=== PATIENT | female | born 1935 | race Caucasian/White ===

== ENCOUNTER 2016-08-04 13:43 | Observation (INO) | payer MEDICARE ==
[~2016-08-04] VITALS: Ht 162.6 cm; Wt 75.0 kg
[~2016-08-04 13:43] MED LIST: ALN70T; AMIO200T2 PO; APIX5TAB2 PO; ASCO500T20 PO; ASP81TEC PO; B-12; C250T; CALCIUM 1200 MG PO; CHOL100011 PO; CLD600T; CYAN500L PO; E400C PO; FENO145T PO; FENO145T18 PO; FISH1CAP15 PO; FLEC100T2 PO; GING1POW PO; GINGER ROOT PO; GLUC-113 PO; GLUC-116 PO; HYDR1TAB66 PO; IRB150T PO; KCL; LEVO125T PO; LVT.112T PO; LVT.1T PO; MCLZ25TRX PO; MECL-124 PO; MELO7.5T; OLME20TA5; OMG1KC; PANT40TA PO; VIT1TABL57 PO; VITAMIN A&D PC
[2016-08-04 17:07] VITALS: BP 151/76
[2016-08-04] MEDS ORDERED: PATIENT MAY USE OWN MEDS, ALL PO SCH (17:30)
[2016-08-04] MEDS ORDERED: ONDANSETRON 4 MG/2 ML (SDV) Z0FRAN IVP PRN (17:30)
[2016-08-04] MEDS ORDERED: MECLIZINE 25 MG (ANTIVERT) TAB PO NR (17:45)
[2016-08-04] MEDS ORDERED: ACETAMINOPHEN 500 MG TAB (TYLENOL) PO PRN (17:45)
[2016-08-04 17:51] LABS: BASOPHILS # (AUTO) 0.1 10^3/uL (0.0-0.1); BASOPHILS % (AUTO) 1 % (0-10); EOSINOPHILS # (AUTO) 0.2 10^3/uL (0.0-0.3); EOSINOPHILS % (AUTO) 3 % (0-10); LYMPHOCYTES % (AUTO) 33 % (12-44); MEAN CORPUSCULAR HEMOGLOBIN 27 PG (25-34); MEAN CORPUSCULAR HGB CONC 33 G/DL (32-36); MEAN CORPUSCULAR VOLUME 83 FL (80-99); MEAN PLATELET VOLUME 10.1 FL (7.4-10.4); MONOCYTES # (AUTO) 0.6 X 10^3 (0.0-1.0); MONOCYTES % (AUTO) 10 % (0-12); NEUTROPHILS # (AUTO) 3.2 X 10^3 (1.8-7.8); NEUTROPHILS % (AUTO) 54 % (42-75); PLATELET COUNT 314 10^3/uL (130-400); RED BLOOD COUNT 4.53 10^6/uL (4.35-5.85); RED CELL DISTRIBUTION WIDTH 13.3 % (10.0-14.5)
[2016-08-04 18:07] LABS: ALANINE AMINOTRANSFERASE 19 U/L (0-55); ANION GAP 11 MMOL/L (5-14); ASPARTATE AMINO TRANSFERASE 17 U/L (5-34); BILIRUBIN,TOTAL 0.4 MG/DL (0.1-1.0); BLOOD UREA NITROGEN 19 MG/DL (7-18); BUN/CREATININE RATIO 28; CALCIUM 9.5 MG/DL (8.5-10.1); CARBON DIOXIDE 22 MMOL/L (21-32); CHLORIDE 106 MMOL/L (98-107); CREATININE SERUM 0.68 MG/DL (0.60-1.30); GFR ESTIMATED > 60; GLUCOSE 99 MG/DL (70-105); MAGNESIUM 1.9 MG/DL (1.8-2.4); POTASSIUM 3.7 MMOL/L (3.6-5.0); SODIUM 139 MMOL/L (135-145); TOTAL PROTEIN 6.4 G/DL (6.4-8.2); hs C REACTIVE PROTEIN 0.64 MG/DL (0.00-0.50)
--- NOTE | 2016-08-04 18:14 | History & Physicial ---
History of Present Illness History of Present Illness Reason for visit/HPI This is an 81 year old female who presented to my office with recent onset of acute vertigo with a fall. [place] had the onset of vertigo. She stood up to try to grab on to something but was swaying and spinning and fell to the ground striking her right shoulder. She has been unsteady and foggy since. Her family also reports worsening memory recently. She has a known history of atrial fibrillation but denies any recent palpitations. She was found to have lateral nystagmus on exam and it was decided to directly admit her for further evaluation. Date of Admission I consulted on this patient on 08/04/16 17:36 Attending Physician Reji Ghosh DO Admitting Physician Reji Ghosh DO Consult Allergies and Home Medications Allergies Coded Allergies: diltiazem (Verified Allergy, Unknown, 06/28/15) thiopental (Verified Allergy, Unknown, 06/28/15) warfarin (Verified Allergy, Unknown, 06/28/15) Home Medications Amiodarone HCl 200 Mg Tablet, 400 MG PO BID, #60 Ref 2 Take 400 mg Twice daily for one week then take 200 mg Twice daily Prescribed by: MARYSE LAZO on 06/29/15 0938 Apixaban 5 Mg Tablet, 5 MG PO BID, #60 Ref 4 Prescribed by: DARLINE BARRAGAN on 07/20/13 1201 Ascorbic Acid 500 Mg Tablet, 500 MG PO DAILY, (Reported) Cholecalciferol 1,000 Unit Capsule, 1,000 UNIT PO DAILY, (Reported) Cyanocobalamin 500 Mcg Lozenge, 500 MCG PO DAILY, (Reported) Fenofibrate Nanocrystallized 145 Mg Tablet, 145 MG PO DAILY, #30 Prescribed by: DARRYL RUDOLPH on 01/24/13 1100 Fish Oil/Dha/Epa 1 Each Capsule, 1,200 MG PO BID, (Reported) Gluc 2KCL/Chondr/Amie Hy/Hy Ac 1 Each Capsule, 1 CAP PO BID, (Reported) 1500MG/1200MG Irbesartan 150 Mg Tab, 150 MG PO DAILY, (Reported) Levothyroxine Sodium 125 Mcg Tablet, 125 MCG PO DAILY, (Reported) Meclizine Hcl 25 Mg Tab, 1 TAB PO DAILY, #30 Prescribed by: DARRYL RUDOLPH on 01/24/13 1100 Vitamin E Acetate 400 Unit Capsule, 400 UNITS PO DAILY, (Reported) [Calcium 1200MG] , 1,200 MG PO DAILY, (Reported) [Vanessa Root] , 550 MG PO DAILY, (Reported) Past Slyloiv-Rrtabl-Gcggdq Hx Patient Social History Alcohol Use: Denies Use Recreational Drug Use: No Smoking Status: Never a Smoker Physical Abuse Screen: No Sexual Abuse: No Recent Foreign Travel: No Contact w/other who traveled: No Recent Hopitalizations: No Recent Infectious Disease Expo: No Immunizations Up To Date Tetanus Booster (TDap): More than 5yrs Seasonal Allergies Seasonal Allergies: No Surgeries HX Surgeries: Yes (HEART ABLATION) Respiratory Hx Respiratory Disorders: No Cardiovascular Hx Cardiovascular Disorders: Yes (a fib, 2 ABLASIONS LAST ONE OCT 2014 ) Neurological Hx Neurological Disorders: No Reproductive System Hx Reproductive Disorders: No Genitourinary Hx Genitourinary Disorders: No Gastrointestinal Hx Gastrointestinal Disorders: No Gastrointestinal Disorders: Gastroesophageal Reflux Musculoskeletal Hx Musculoskeletal Disorders: Yes Musculoskeletal Disorders: Arthritis Endocrine Hx Endocrine Disorders: Yes (THYROIDECTOMY- TAKES SYNTHROID) HEENT HX ENT Disorders: No (BILAT CATARACTS REMOVED) HEENT Disorders: Cataract Loss of Vision: Denies Hearing Impairment: Denies Cancer Hx Cancer: No (FREEZING TO AREAS AROUND NOSE-POSS CANCEROUS) Cancer: Skin Psychosocial Hx Psychiatric Problems: No Integumentary HX Skin/Integumentary Disorder: No (FREEZING DONE ON SCALEY AREAS AROUND NOSE) Blood Transfusions Hx Blood Disorders: No Family Medical History Family Hx: Cancer 03 MOTHER SON (KIDNEY) Family history: Arthritis 03 FATHER 03 MOTHER Parkinson's disease 09 BROTHER No Family History of: Family history: Cardiovascular disease Family history: Diabetes mellitus Family history: Thyroid disorder Heart disease Psychotic disorder Constitutional: weakness EENTM: No blurred vision, No dental problems, No double vision, No ear discharge, No ear pain, No epistaxis, No eye pain, No hearing loss, No hoarseness, No mouth pain, No mouth swelling, No no symptoms reported, No nose congestion, No nose pain, No other, No see HPI, No tearing, No throat pain, No throat swelling, No vision loss Respiratory: No no symptoms reported, No see HPI, No cough, No dyspnea on exertion, No hemoptysis, No orthopnea, No phlegm, No short of breath, No stridor , No wheezing, No other Cardiovascular: No no symptoms reported, No see HPI, No chest pain, No edema, No Hx of Intervention, No palpitations, No syncope, No vascular heart diseas, No other Gastrointestinal: nausea Genitourinary: No no symptoms reported, No see HPI, No decreased output, No discharge, No dysuria, No frequency, No hematuria, No hesitancy, No incontinence , No nocturia, No pain, No other Musculoskeletal: joint pain (right shoulder from fall), muscle weakness Skin: other (bruising to right shoulder) Psychiatric/Neurological: Weakness, Other (dizziness) Physical Exam Vital Signs Vital Sign - Last 12Hours 08/04/16 17:07 Temp 97.0 Pulse 78 Resp 20 B/P (MAP) 151/76 Pulse Ox 96 Capillary Refill : General Appearance: No Apparent Distress HEENT: Normal ENT Inspection Neck: Supple Respiratory: Lungs Clear Cardiovascular: Regular Rate, Rhythm, Systolic Murmur, Gallop/S4 Gastrointestinal: Normal Bowel Sounds, Non Tender, Soft Rectal: Deferred Back: No CVA Tenderness Extremity: Non Tender, No Calf Tenderness, No Pedal Edema Neurologic/Psychiatric: Alert, Oriented x3, Other (unsteady gait, lateral nystagmus) Skin: Ecchymosis (right shoulder) Comments Laboratory Tests 08/04/16 17:40: White Blood Count 6.0, Red Blood Count 4.53, Hemoglobin 12.3, Hematocrit 38, Mean Corpuscular Volume 83, Mean Corpuscular Hemoglobin 27, Mean Corpuscular Hemoglobin Concent 33, Red Cell Distribution Width 13.3, Platelet Count 314, Mean Platelet Volume 10.1, Neutrophils (%) (Auto) 54, Lymphocytes (%) (Auto) 33 , Monocytes (%) (Auto) 10, Eosinophils (%) (Auto) 3, Basophils (%) (Auto) 1, Neutrophils # (Auto) 3.2, Lymphocytes # (Auto) 2.0, Monocytes # (Auto) 0.6, Eosinophils # (Auto) 0.2, Basophils # (Auto) 0.1 08/04/16 17:52: Assessment/Plan Assessment and Plan 1. Acute Vertigo with Fall and Recent Memory Loss--admit and Check CT of head as well as CT angiogram of neck, hydrate, meclizine, check lab and UA 2. History of Atrial Fibrillation--monitor on telemetry, continue eliquis 3. Hypertension--resume Avapro 4. Hypothyroidism--check TSH and free T4 Problems: REJI GHOSH DO August 04, 2016 18:14
[2016-08-04] MEDS: NS IV 1000 ML 1,000 ML IV SCH (18:25)
[2016-08-04 18:29] LABS: BILIRUBIN,URINE NEGATIVE (NEGATIVE); KETONES,URINE NEGATIVE (NEGATIVE); LEUKOCYTE ESTERASE ,URINE 2+ (NEGATIVE); NITRITE,URINE NEGATIVE (NEGATIVE); PH,URINE 6.5 (5-9); PROTEIN,URINE NEGATIVE (NEGATIVE); UROBILINOGEN,URINE NORMAL (NORMAL)
[2016-08-04 18:30] LABS: SQUAMOUS EPITHELIAL CELL,UR RARE /HPF; WBC,URINE 0-2 /HPF
--- NOTE | 2016-08-04 18:43 | Diagnostic Imaging Report ---
INDICATION: Fell on right shoulder, pain and bruising. COMPARISON STUDY: Chest radiograph from 06/28/2015. FINDINGS: Three views of the right shoulder demonstrates no fracture or dislocation. Osteophytes are seen off of the inferior aspect of the glenoid. IMPRESSION: There are no acute findings. Dictated by: Dictated on workstation # [id number]
--- NOTE | 2016-08-04 18:45 | Diagnostic Imaging Report ---
PROCEDURE: CT head without contrast. TECHNIQUE: Multiple contiguous axial images were obtained through the brain without the use of intravenous contrast. INDICATION: Vertigo, confusion, and chronic atrial fibrillation. COMPARISON STUDIES: None. FINDINGS: Noncontrast CT scanning of the head demonstrates mild atrophy. There is some calcification of both carotid siphons. No mass effect, midline shift, hemorrhage, or extra-axial fluid collections are present. No insular ribbon sign or hyperdense MCA sign is present. The bone windows appear normal. IMPRESSION: There is mild atrophy with no acute findings. Dictated by: Dictated on workstation # [id number]
--- NOTE | 2016-08-04 18:49 | Diagnostic Imaging Report ---
INDICATION: Vertigo, confusion, chronic atrial fibrillation. CONTRAST: 75 cc of Omnipaque 350 was given intravenously. COMPARISON STUDY: CT scan of the head from earlier today. FINDINGS: The CTA of the head demonstrates normal takeoff of the great vessels from the arch. The left vertebral artery is small. No dissection or stenosis is seen. The left vertebral artery ends in PICA. The common carotid and internal carotid arteries both appear normal. Some degenerative changes are present within the cervical spine. There are no fractures or subluxations. The soft tissues of the neck appear normal. The lung apices are clear. The CTA of the head demonstrates the vertebral basilar system without stenosis. There is a origin of the left posterior cerebral artery which is a normal variant. No aneurysm or AVM is present. Minimal calcifications are present in the carotid siphons. Middle and anterior cerebral arteries appear normal. IMPRESSION: 1. No stenosis, filling defects, aneurysms or vascular malformations are present. 2. Degenerative changes are present in the cervical spine. Dictated by: Dictated on workstation # [id number]
[2016-08-04 19:18] VITALS: BP 150/67
[2016-08-04] MEDS ORDERED: APIXABAN 5 MG (ELIQUIS) TABLET PO SCH (21:00)
[2016-08-05 00:17] VITALS: BP 146/65
[2016-08-05] MEDS: NS IV 1000 ML 1,000 ML IV SCH ×2 (02:04→08:24)
[2016-08-05 04:09] VITALS: BP 150/68
[2016-08-05] MEDS ORDERED: LEVOTHYROXINE 125 MCG (LEVOTHROID) TABLET PO SCH (06:30)
[2016-08-05 08:00] VITALS: BP 123/56
[2016-08-05] MEDS ORDERED: APIX5TAB PO (08:13)
[2016-08-05] MEDS ORDERED: FENO145T20 PO (08:13)
[2016-08-05] MEDS ORDERED: CALC-676 PO (08:21)
[2016-08-05] MEDS ORDERED: OMG1KC PO (08:21)
[2016-08-05] MEDS ORDERED: MECL-106 PO (08:21)
[2016-08-05] MEDS ORDERED: CHOL200059 PO (08:21)
[2016-08-05] MEDS ORDERED: ACET-2267 PO (08:22)
--- NOTE | 2016-08-05 08:55 | Discharge Inst-Simple/Standard ---
Discharge Inst-Standard Patient Instructions/Follow Up Plan of Care/Instructions/FU: Fwup 2 weeks Activity as Tolerated: Yes Discharge Diet: Cardiac Diet Planned Outpatient Orders/Ref. See Dr. Elias Anderson for updated eye exam Pneu Vac Indicated: Yes REJI ISIDRO DO Aug 05, 2016 8:55 am
[2016-08-05] MEDS ORDERED: APIXABAN 5 MG (ELIQUIS) TABLET PO SCH (09:00)
[2016-08-05] MEDS ORDERED: IRBESARTAN 150 MG (AVAPRO) TAB PO SCH (09:00)
[2016-08-05 09:51] VITALS: BP 123/56
[2016-08-06] MEDS ORDERED: LEVOTHYROXINE 125 MCG (LEVOTHROID) TABLET PO SCH (06:30)
--- NOTE | 2016-08-17 14:10 | Physician Query-Final Dx ---
Final Diagnosis Give Final Diagnosis Please give Final Diagnosis MOISÉS SANTIAGO Aug 17, 2016 14:09
--- OUTSIDE RECORDS SUMMARY | 2016-08-19 18:10 | XMS REPORT | Continuity of Care Document ---
Author Author [facility] Organization [facility] Address Unknown Phone Unavailable Allergies Active Description Code Type Severity Reaction Onset Reported/Identified Relationship to Patient Clinical Status Yes diltiazem [id number] Drug Allergy Unknown N/A 06/28/2015 Yes thiopental [id number] Drug Allergy Unknown N/A 06/28/2015 Yes warfarin [id number] Drug Allergy Unknown N/A 06/28/2015 Medications Problems Date Dx Coded Attending Type Code Diagnosis Diagnosed By 08/01/2011 Ot 401.9 HYPERTENSION NOS 08/01/2011 Ot 427.31 ATRIAL FIBRILLATION 01/24/2013 TRU SHIELDS, ANAM Trevizo Ot 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 07/20/2013 MARYSE LAZO MD Ot 272.4 HYPERLIPIDEMIA NEC/NOS 07/20/2013 MARYSE LAZO MD Ot 401.9 HYPERTENSION NOS 07/20/2013 MARYSE LAZO MD Ot 414.01 CORONARY ATHEROSCLEROSIS OF [place] CORON 07/20/2013 MARYSE LAZO MD Ot 427.31 ATRIAL FIBRILLATION 07/20/2013 MARYSE LAZO MD Ot 786.50 CHEST PAIN NOS 07/20/2013 MARYSE LAZO MD Ot 794.30 ABN CARDIOVASC STUDY NOS 07/20/2013 MARYSE LAZO MD Ot V58.69 OTH MED,LT,CURRENT USE 01/18/2014 ORENDSHELLY LANTIGUA DOLINE S Ot 724.2 01/18/2014 JOSE ISIDRO DOQUELINE S Ot 729.5 01/28/2014 TRISHA NATION MD Ot 721.3 LUMBOSACRAL SPONDYLOSIS 01/28/2014 TRISHA NATION MD Ot 724.6 DISORDERS OF SACRUM 01/28/2014 TRISHA NATION MD Ot V58.69 OTH MED,LT,CURRENT USE 06/24/2015 MARYSE LAZO MD Ot E78.2 MIXED HYPERLIPIDEMIA 06/24/2015 MARYSE LAZO MD Ot I10 ESSENTIAL (PRIMARY) HYPERTENSION 06/24/2015 MARYSE LAZO MD Ot I25.10 ATHSCL HEART DISEASE OF [place] CORONARY 06/24/2015 MARYSE LAZO MD Ot I48.0 PAROXYSMAL ATRIAL FIBRILLATION 06/24/2015 MRAYSE LAZO MD Ot I48.3 TYPICAL ATRIAL FLUTTER 06/24/2015 MARYSE LAZO MD Ot I65.23 OCCLUSION AND STENOSIS OF [place] 06/28/2015 Ot 401.9 HYPERTENSION NOS 06/28/2015 Ot 427.31 ATRIAL FIBRILLATION 06/29/2015 MARYSE LAZO MD Ot E78.5 HYPERLIPIDEMIA, UNSPECIFIED 06/29/2015 MARYSE LAZO MD Ot E89.0 POSTPROCEDURAL HYPOTHYROIDISM 06/29/2015 MARYSE LAZO MD Ot I10 ESSENTIAL (PRIMARY) HYPERTENSION 06/29/2015 MARYSE LAZO MD Ot I25.10 ATHSCL HEART DISEASE OF [place] CORONARY 06/29/2015 MARYSE LAZO MD Ot I48.0 PAROXYSMAL ATRIAL FIBRILLATION 06/29/2015 MARYSE LAZO MD Ot I65.23 OCCLUSION AND STENOSIS OF [place] 06/29/2015 MARYSE LAZO MD Ot K21.9 GASTRO-ESOPHAGEAL REFLUX DISEASE WITHOUT 07/15/2015 MARYSE LAZO MD Ot E78.2 MIXED HYPERLIPIDEMIA 07/15/2015 MARYSE LAZO MD Ot I10 ESSENTIAL (PRIMARY) HYPERTENSION 07/15/2015 MARYSE LAZO MD Ot I25.10 ATHSCL HEART DISEASE OF [place] CORONARY 07/15/2015 MARYSE LAZO MD Ot I48.0 PAROXYSMAL ATRIAL FIBRILLATION 07/15/2015 MARYSE LAZO MD Ot I48.3 TYPICAL ATRIAL FLUTTER 07/15/2015 MARYSE LAZO MD Ot I65.23 OCCLUSION AND STENOSIS OF [place] 07/29/2015 MARYSE LAZO MD Ot E78.2 MIXED HYPERLIPIDEMIA 07/29/2015 MARYSE LAZO MD Ot I10 ESSENTIAL (PRIMARY) HYPERTENSION 07/29/2015 MARYSE LAZO MD Ot I25.10 ATHSCL HEART DISEASE OF [place] CORONARY 07/29/2015 MARYSE LAZO MD Ot I48.0 PAROXYSMAL ATRIAL FIBRILLATION 07/29/2015 MARYSE LAZO MD Ot I48.3 TYPICAL ATRIAL FLUTTER 07/29/2015 MARYSE LAZO MD Ot I65.23 OCCLUSION AND STENOSIS OF [place] 01/22/2016 Ot 401.9 HYPERTENSION NOS 01/22/2016 Ot 427.31 ATRIAL FIBRILLATION 01/22/2016 Ot 401.9 HYPERTENSION NOS 01/22/2016 Ot 427.31 ATRIAL FIBRILLATION 01/22/2016 Ot 401.9 HYPERTENSION NOS 01/22/2016 Ot 427.31 ATRIAL FIBRILLATION 01/22/2016 Ot 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 01/22/2016 REJI ISIDRO DO S Ot 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 01/22/2016 BEAU ELIZABETH Ot 733.00 OSTEOPOROSIS NOS 01/22/2016 TRU SHIELSD, ANAM Trevizo Ot 241.0 NONTOX UNINODULAR GOITER 01/22/2016 TRU SHIELDS, ANAM Trevizo Ot 241.0 NONTOX UNINODULAR GOITER 01/22/2016 TRU SHIELDS, ANAM Trevizo Ot V72.63 PRE-PROCEDURAL LABORATORY EXAMINATION 01/22/2016 TRU SHIELDS, ANAM Trevizo Ot V74.8 SCREEN-BACTERIAL DIS NEC 01/22/2016 MARYSE LAZO MD Ot 272.4 HYPERLIPIDEMIA NEC/NOS 01/22/2016 MARYSE LAZO MD Ot 397.0 TRICUSPID VALVE DISEASE 01/22/2016 MARYSE LAZO MD Ot 401.9 HYPERTENSION NOS 01/22/2016 MARYSE LAZO MD Ot 424.0 MITRAL VALVE DISORDER 01/22/2016 MARYSE LAZO MD Ot 427.31 ATRIAL FIBRILLATION 01/22/2016 MARYSE LAZO MD Ot 785.1 PALPITATIONS 01/22/2016 MARYSE LAZO MD Ot 786.50 CHEST PAIN NOS 01/22/2016 MARYSE LAZO MD Ot 272.4 HYPERLIPIDEMIA NEC/NOS 01/22/2016 MARYSE LAZO MD Ot 401.9 HYPERTENSION NOS 01/22/2016 MARYSE LAZO MD Ot 427.31 ATRIAL FIBRILLATION 01/22/2016 MARYSE LAZO MD Ot 785.1 PALPITATIONS 01/22/2016 MARYSE LAZO MD Ot 786.50 CHEST PAIN NOS 01/22/2016 MARYSE LAZO MD Ot 401.9 HYPERTENSION NOS 01/22/2016 MARYSE LAZO MD Ot 427.31 ATRIAL FIBRILLATION 01/22/2016 MARYSE LAZO MD Ot 785.1 PALPITATIONS 01/22/2016 MARYSE LAZO MD Ot 786.50 CHEST PAIN NOS 01/22/2016 MARYSE LAZO MD Ot 794.30 ABN CARDIOVASC STUDY NOS 01/22/2016 MARYSE LAZO MD Ot 789.00 ABDOMINAL PAIN, UNSPECIFIED SITE 01/22/2016 MARYSE LAZO MD Ot 272.4 HYPERLIPIDEMIA NEC/NOS 01/22/2016 MARYSE LAZO MD Ot 401.9 HYPERTENSION NOS 01/22/2016 MARYSE LAZO MD Ot 414.01 CORONARY ATHEROSCLEROSIS OF [place] CORON 01/22/2016 MARYSE LAZO MD Ot 427.31 ATRIAL FIBRILLATION 01/22/2016 MARYSE LAZO MD Ot 785.1 PALPITATIONS 01/22/2016 REJI ISIDRO DO S Ot 724.2 LUMBAGO 01/22/2016 REJI ISIDRO DO S Ot 729.5 PAIN IN LIMB 01/22/2016 MARYSE LAZO MD Ot E78.2 MIXED HYPERLIPIDEMIA 01/22/2016 MARYSE LAZO MD Ot I10 ESSENTIAL (PRIMARY) HYPERTENSION 01/22/2016 MARYSE LAZO MD Ot I25.10 ATHSCL HEART DISEASE OF [place] CORONARY 01/22/2016 MARYSE LAZO MD Ot I48.0 PAROXYSMAL ATRIAL FIBRILLATION 01/22/2016 MARYSE LAZO MD Ot I48.3 TYPICAL ATRIAL FLUTTER 01/22/2016 MARYSE LAZO MD Ot I65.23 OCCLUSION AND STENOSIS OF [place] 01/22/2016 SHELLY ISIDRO DOLINE S Ot M85.88 OTH DISRD OF BONE DENSITY AND STRUCTURE, 01/23/2016 JOSE ISIDRO DOQUELINE S Ot M85.88 OTH DISRD OF BONE DENSITY AND STRUCTURE, 02/13/2016 SHELLY ISIDRO DOLINE S Ot M85.88 OTH DISRD OF BONE DENSITY AND STRUCTURE, 08/05/2016 REJI ISIDRO DO S Ot E03.9 HYPOTHYROIDISM, UNSPECIFIED Procedures Code Description Performed By Performed On [id number] MEASURE OF CARDIAC SAMPL PRESSURE, L H 06/29/2015 [id number] FLUOROSCOPY OF MULT COR ART USING L OSM 06/29/2015 [id number] FLUOROSCOPY OF LEFT HEART USING LOW OSMO 06/29/2015 [id number] FLUOROSCOPY OF ABDOMINAL AORTA USING LOW 06/29/2015 Results Test Result Range Complete blood count (CBC) with automated white blood cell (WBC) differential - 08/04/16 17:40 Blood leukocytes automated count (number/volume) 6.0 10*3/ uL 4.3-11.0 Blood erythrocytes automated count (number/volume) 4.53 10*6 /uL 4.35-5.85 Venous blood hemoglobin measurement (mass/volume) 12.3 g/dL 11.5-16.0 Blood hematocrit (volume fraction) 38 % 35-52 Automated erythrocyte mean corpuscular volume 83 [foz_us] 80-99 Automated erythrocyte mean corpuscular hemoglobin (mass per erythrocyte) 27 pg 25-34 Automated erythrocyte mean corpuscular hemoglobin concentration measurement ( mass/volume) 33 g/dL 32-36 Automated erythrocyte distribution width ratio 13.3 % 10.0-14.5 Automated blood platelet count (count/volume) 314 10*3/uL 130-400 Automated blood platelet mean volume measurement 10.1 [foz_ us] 7.4-10.4 Automated blood neutrophils/100 leukocytes 54 % 42-75 Automated blood lymphocytes/100 leukocytes 33 % 12-44 Blood monocytes/100 leukocytes 10 % 0-12 Automated blood eosinophils/100 leukocytes 3 % 0-10 Automated blood basophils/100 leukocytes 1 % 0-10 Blood neutrophils automated count (number/volume) 3.2 10*3 1.8-7.8 Blood lymphocytes automated count (number/volume) 2.0 10*3 1.0-4.0 Blood monocytes automated count (number/volume) 0.6 10*3 0.0-1.0 Automated eosinophil count 0.2 10*3/uL 0.0-0.3 Automated blood basophil count (count/volume) 0.1 10*3/uL 0.0-0.1 Comprehensive metabolic panel - 08/04/16 17:40 Serum or plasma sodium measurement (moles/volume) 139 mmol/ L 135-145 Serum or plasma potassium measurement (moles/volume) 3.7 mmol/L 3.6-5.0 Serum or plasma chloride measurement (moles/volume) 106 mmol /L 98-107 Carbon dioxide 22 mmol/L 21-32 Serum or plasma anion gap determination (moles/volume) 11 mmol/L 5-14 Serum or plasma urea nitrogen measurement (mass/volume) 19 mg/dL 7-18 Serum or plasma creatinine measurement (mass/volume) 0.68 mg /dL 0.60-1.30 Serum or plasma urea nitrogen/creatinine mass ratio 28 NRG Serum or plasma creatinine measurement with calculation of estimated glomerular filtration rate > NRG Serum or plasma glucose measurement (mass/volume) 99 mg/dL 70-105 Serum or plasma calcium measurement (mass/volume) 9.5 mg/dL 8.5-10.1 Serum or plasma total bilirubin measurement (mass/volume) 0.4 mg/dL 0.1-1.0 Serum or plasma alkaline phosphatase measurement (enzymatic activity/volume) 35 U/L 40-136 Serum or plasma aspartate aminotransferase measurement (enzymatic activity/ volume) 17 U/L 5-34 Serum or plasma alanine aminotransferase measurement (enzymatic activity/volume ) 19 U/L 0-55 Serum or plasma protein measurement (mass/volume) 6.4 g/dL 6.4-8.2 Serum or plasma albumin measurement (mass/volume) 4.0 g/dL 3.2-4.5 Magnesium - 08/04/16 17:40 Magnesium 1.9 mg/dL 1.8-2.4 THYROID STIMULATING HORMONE - 08/04/16 17:40 THYROID STIMULATING HORMONE 1.60 u[iU]/mL 0.35-4.94 Serum or plasma C reactive protein measurement (mass/volume) - 08/04/16 17:40 Serum or plasma C reactive protein measurement (mass/volume) 0.64 mg/dL 0.00-0.50 Serum or plasma thyroxine (T4) free measurement (mass/volume) - 08/04/16 17:40 Serum or plasma thyroxine (T4) free measurement (mass/volume) 1.49 ng/dL 0.70-1.48 Complete urinalysis with reflex to culture - 08/04/16 17:52 Urine color determination YELLOW NRG Urine clarity determination CLEAR NRG Urine pH measurement by test strip 6.5 5 -9 Specific gravity of urine by test strip 1.010 1.016-1.022 Urine protein assay by test strip, semi-quantitative NEGATIVE NEGATIVE Urine glucose detection by automated test strip NEGATIVE NEGATIVE Erythrocytes detection in urine sediment by light microscopy NEGATIVE NEGATIVE Urine ketones detection by automated test strip NEGATIVE NEGATIVE Urine nitrite detection by test strip NEGATIVE NEGATIVE Urine total bilirubin detection by test strip NEGATIVE NEGATIVE Urine urobilinogen measurement by automated test strip (mass/volume) NORMAL NORMAL Urine leukocyte esterase detection by dipstick 2+ NEGATIVE Automated urine sediment erythrocyte count by microscopy (number/high power field) NONE NRG Automated urine sediment leukocyte count by microscopy (number/high power field ) [HPF] NRG Bacteria detection in urine sediment by light microscopy TRACE NRG Squamous epithelial cells detection in urine sediment by light microscopy RARE NRG Crystals detection in urine sediment by light microscopy NONE NRG Casts detection in urine sediment by light microscopy NONE NRG Mucus detection in urine sediment by light microscopy NEGATIVE NRG Complete urinalysis with reflex to culture NO NRG Encounters ACCT No. Visit Date/Time Discharge Status Pt. Type Provider Facility Loc./Unit Complaint [id number] 08/04/2016 17:00:00 2016 08:54:00 DIS Inpatient REJI ISIDRO DO S [facility] 4TH DIZZINESS AND AFIB [id number] 06/28/2015 15:19:00 2015 14:30:00 DIS Inpatient MARYSE LAZO MD [facility] ICU A-FIB W/ RVR [id number] 01/28/2014 13:33:00 2013 14:44:00 DIS Outpatient TRISHA NATION MD [facility] CARD SIJD [id number] 12/17/2013 11:47:00 2013 23:59:59 CLS Outpatient REJI ISIDRO DO S [facility] RAD LOW BACK PAIN, L LEG PAIN [id number] 08/01/2013 08:46:00 2013 23:59:59 CLS Outpatient MARYSE LAZO MD [facility] CATH AFIB,PALP [id number] 07/23/2013 13:01:00 2013 23:59:59 CLS Outpatient MARYSE LAZO MD [facility] RAD ABD PAIN,POST CATH [id number] 07/20/2013 06:38:00 2013 13:15:00 DIS Outpatient MARYSE LAZO MD [facility] CATH CP,SOB,DIZZINESS [id number] 07/18/2013 09:43:00 2013 23:59:59 CLS Outpatient MARYSE LAZO MD [facility] CARD CP,PALPITATIONS,HTN,HLP [id number] 07/12/2013 08:59:00 2013 23:59:59 CLS Outpatient MARYSE LAZO MD [facility] CP PALIPATIATION HYPERTENSION HYPERLIPIDEMA [id number] 06/18/2013 11:24:00 2013 23:59:59 CLS Outpatient MARYSE LAZO MD [facility] CP, HTN [id number] 01/23/2013 07:15:00 2012 11:30:00 DIS Outpatient ANAM OTT MD [facility] SDC THYROID NODULES [id number] 01/19/2013 08:01:00 2012 23:59:59 CLS Outpatient ANAM OTT MD [facility] PREOP THYROID NODULES [id number] 01/10/2013 08:49:00 2012 23:59:59 CLS Outpatient ANAM OTT MD [facility] RAD LEFT THYROID NODULE [id number] 01/05/2013 08:53:00 2012 23:59:59 CLS Outpatient BEAU ELIZABETH DOLL SURGEON [facility] RAD OSTEOPORSIS [id number] 01/01/2013 12:22:00 2012 23:59:59 CLS Outpatient REJI ISIDRO DO [facility] RAD THYROID NODULES [id number] 01/22/2016 09:14:00 ACT Outpatient REJI ISIDRO DO [facility] RAD OSTEOPENIA [id number] 06/23/2015 08:16:00 ACT Outpatient MARYSE LAZO MD [facility] CARD CAD,ATRIAL FLUTTER, HTN,HLP PAF [id number] 12/03/2011 12:47:00 Document Registration [id number] 08/02/2011 09:00:00 Document Registration [id number] 05/10/2011 07:52:00 Document Registration [id number] 05/03/2011 08:50:00 Document Registration [id number] 08/05/2010 08:55:00 Document Registration
== END 2016-08-05 08:54 | disposition home or self-care (01) ==
LOC: EDSTATUS 13:43 → 4TH 17:00 → 4THo 17:15 → 4TH 17:15 → 4THo 08-05 10:02
PROVIDERS: ADMIT Family Medicine; ATTEND Family Medicine
DX: R42 Dizziness and giddiness (principal); R41.0 Disorientation, unspecified; H55.09 Other forms of nystagmus; I48.2 Chronic atrial fibrillation; S40.011A Contusion of right shoulder, initial encounter; E89.0 Postprocedural hypothyroidism; K21.9 Gastro-esophageal reflux disease without esophagitis; I10 Essential (primary) hypertension; W19.XXXA Unspecified fall, initial encounter
CPT/HCPCS: 36415; 70450; 70498; 73030; 80053; 81000; 83735; 84439; 84443; 85025; 86141; G0378

== ENCOUNTER 2016-08-23 20:14 | Emergency (ER) | payer MEDICARE ==
[~2016-08-23] VITALS: Ht 162.6 cm; Wt 74.8 kg
[~2016-08-23 20:14] MED LIST changes: +ACET-2267 PO; +APIX5TAB PO; +CALC-676 PO; +CHOL200059 PO; +FENO145T20 PO; +MECL-106 PO; +OMG1KC PO
[2016-08-23] MEDS ORDERED: ASPIRIN 81 MG CHEW (CHILDREN'S ASA) PO ONE (20:30)
[2016-08-23 20:45] LABS: BASOPHILS # (AUTO) 0.1 10^3/uL (0.0-0.1); BASOPHILS % (AUTO) 1 % (0-10); EOSINOPHILS # (AUTO) 0.1 10^3/uL (0.0-0.3); EOSINOPHILS % (AUTO) 2 % (0-10); LYMPHOCYTES # (AUTO) 2.1 X 10^3 (1.0-4.0); LYMPHOCYTES % (AUTO) 35 % (12-44); MEAN CORPUSCULAR HEMOGLOBIN 27 PG (25-34); MEAN CORPUSCULAR HGB CONC 32 G/DL (32-36); MEAN CORPUSCULAR VOLUME 83 FL (80-99); MEAN PLATELET VOLUME 9.9 FL (7.4-10.4); MONOCYTES # (AUTO) 0.7 X 10^3 (0.0-1.0); MONOCYTES % (AUTO) 12 % (0-12); NEUTROPHILS % (AUTO) 50 % (42-75); PLATELET COUNT 321 10^3/uL (130-400); RED BLOOD COUNT 4.97 10^6/uL (4.35-5.85); RED CELL DISTRIBUTION WIDTH 13.5 % (10.0-14.5); WHITE BLOOD COUNT 6.1 10^3/uL (4.3-11.0)
[2016-08-23] MEDS ORDERED: Multaq (20:46)
[2016-08-23 21:00] LABS: PROTHROMBIN TIME PATIENT 12.6 SEC (12.2-14.7)
[2016-08-23 21:10] LABS: ALANINE AMINOTRANSFERASE 29 U/L (0-55); AMYLASE 51 U/L (25-125); ANION GAP 10 MMOL/L (5-14); ASPARTATE AMINO TRANSFERASE 20 U/L (5-34); BILIRUBIN,TOTAL 0.4 MG/DL (0.1-1.0); BLOOD UREA NITROGEN 20 MG/DL (7-18); BUN/CREATININE RATIO 25 (0-20); CALCIUM 9.8 MG/DL (8.5-10.1); CARBON DIOXIDE 22 MMOL/L (21-32); CHLORIDE 110 MMOL/L (98-107); CREATINE KINASE 70 U/L (29-168); CREATININE SERUM 0.79 MG/DL (0.60-1.30); GFR ESTIMATED > 60; GLUCOSE 115 MG/DL (70-105); HEMOLYSIS 8 (-100-29); ICTERUS 0.4 (-100-1.9); LIPASE 41 U/L (8-78); LIPEMIA 13 (-100-49); MAGNESIUM 1.9 MG/DL (1.8-2.4); SODIUM 142 MMOL/L (135-145); TOTAL PROTEIN 6.5 GM/DL (6.4-8.2)
--- NOTE | 2016-08-23 21:28 | Diagnostic Imaging Report ---
EXAMINATION: Portable erect AP chest at 09:05 p.m. INDICATION: Chest pain. FINDINGS: There is shallow inspiration when compared to the prior exam of 06/28/2015. Allowing for this technical factor, the heart size is stable. There are chronic pulmonary changes evident, but there is no sign of failure, pneumonia, or of a significant pleural effusion. There may be a small amount of atelectasis/infiltrate in the left lung base. The upper lungs remain clear. The mediastinum is not widened. The osseous structures are intact. The ventricular recording device overlying the lower thorax on the left, seen previously, is again evident and no different. IMPRESSION: Allowing for the shallow degree of inspiration, there does not appear to have been any significant change when compared to the prior exam. There may be a small amount of atelectasis/infiltrate in the left lung base. Clinical follow-up is recommended. Dictated by: Dictated on workstation # [id number]
[2016-08-23 21:30] LABS: TROPONIN I < 0.30 NG/ML (<0.30)
[2016-08-23] MEDS ORDERED: METO-351 PO (21:45)
--- NOTE | 2016-08-23 21:45 | ED Cardiac General ---
History of Present Illness General Chief Complaint: Cardiac/General Problems Stated Complaint: AFIB Nursing Triage Note: AMB ARRIVAL TO ED REPORTING FAST HEART RATE SINCE NOON AND IS CONCERNED A FIB HAS RESUMED. HX AFIB/ 2 ABLATIONS/ OFF MEDS FOR RATE CONTROL IN NSR NORMALLY Source: patient History of Present Illness Time seen by provider: 20:28 Initial Comments C/O PALPITATIONS SINCE NOON--FAST, IRREGULAR HEART BEAT NO CHEST PAIN NO SHORTNESS OF BREATH NO DIAPHORESIS NO DIZZINESS NO NAUSEA/VOMITING NO SYNCOPE NO SWELLING IN LEGS/ FEET OR PAIN IN CALVES PT STATES SHE HAS CHRONIC INTERMITTENT ATRIAL FIBRILLATION AND HAS HAD 2 FAILED CARDIAC ABLATION ATTEMPTS. PT WAS SUPPOSED TO HAVE HAD ANOTHER ONE IN JUNE, BUT WAS HELD OFF PT HAD BEEN ON AMIODARONE AND MULTAQ, BUT THOSE WERE DC'D BY [employer]LE[employer]ICATIONS FIELD ENGINEER --WANTS HER TO BE OFF ANTIARRHYTHMIC MEDICATIONS FOR 6-8 WEEKS BEFORE ANOTHER ATTEMPT AT ABLATION, AND HAS BEEN 10 WEEKS SINCE SHE STOPPED THEM. HAD AN APPOINTMENT LAST WEEK WITH HIM AND HAS A FOLLOW UP IN 3 MONTHS PT ALSO TAKES ELIQUIS--HAD HER SECOND DOSE FOR THE DAY JUST PRIOR TO ARRIVAL PT DOES HAVE A LOOP RECORDER IN PLACE PT LATER STATES THAT SYMPTOMS BEGAN TODAY, WHEN SHE BECAME ANXIOUS WHEN PHONE SERVICE WENT OUT TEMPORARILY AND WAS DRIVING AROUND FOR 30 MINUTES TRYING TO LET ALL HER FAMILY KNOW THAT THE PHONE WAS OUT. PT HAS NOT DRIVEN FOR QUITE SOME TIME DUE TO CHRONIC EPISODES OF DIZZINESS, SO WAS NERVOUS ABOUT DRIVING WELL.. ( PHONE SERVICE RETURNED WITHIN 30 MINUTES ) HIM ANALYST: DR. LAZO Allergies and Home Medications Allergies Coded Allergies: diltiazem (Verified Allergy, Unknown, 06/28/15) thiopental (Verified Allergy, Unknown, 06/28/15) warfarin (Verified Allergy, Unknown, 06/28/15) Home Medications Acetaminophen 500 Mg Tablet, 500-1,000 MG PO Q6H PRN for PAIN-MILD, (Reported) Apixaban 5 Mg Tablet, 5 MG PO BID, (Reported) Ascorbic Acid 500 Mg Tablet, 500 MG PO 1200, (Reported) Calcium Carbonate/Vitamin D3 1 Each Tablet, 2 TAB PO DAILY, (Reported) Cholecalciferol (Vitamin D3) 2,000 Unit Tablet, 2,000 UNIT PO 1200, (Reported) Cyanocobalamin 500 Mcg Lozenge, 1,000 MCG PO 1200, (Reported) Gluc 2KCL/Chondr/Amie Hy/Hy Ac 1 Each Capsule, 2 CAP PO HS, (Reported) Irbesartan 150 Mg Tab, 150 MG PO DAILY, (Reported) Levothyroxine Sodium 125 Mcg Tablet, 125 MCG PO DAILY, (Reported) Meclizine HCl 25 Mg Tablet, 25 MG PO HS, (Reported) Metoprolol Succinate 25 Mg Tab.er.24h, 25 MG PO DAILY for 10 Days, #10 Prescribed by: CHANDAN DENNIS on 08/23/162144 [place] 3 Polyunsat Fatty Acids 1,000 Mg Cap, 1,000 MG PO TID, (Reported) Review of Systems Constitutional: no symptoms reported, No diaphoresis, No dizziness, No weakness Respiratory: No Symptoms Reported, Denies Orthopnea, Denies Shortness of Air, Denies SOA With Exertion Cardiovascular: See HPI, Denies Chest Pain, Denies Edema, Irregular Heart Rate , Denies Lightheadedness, Palpitations, Denies Syncope Gastrointestinal: No Symptoms Reported Genitourinary: No Symptoms Reported Musculoskeletal: no symptoms reported Skin: no symptoms reported Psychiatric/Neurological: See HPI, Anxiety Endocrine: No Symptoms Reported Hematologic/Lymphatic: No Symptoms Reported Past Wfngiqx-Iilleu-Wtterg Hx Patient Social History Alcohol Use: Denies Use Recreational Drug Use: No Smoking Status: Never a Smoker 2nd Hand Smoke Exposure: No Recent Foreign Travel: No Contact w/Someone Who Travel: No Recent Infectious Disease Expo: No Recent Hopitalizations: No Immunizations Up To Date Tetanus Booster (TDap): Unknown PED Vaccines UTD: Yes Seasonal Allergies Seasonal Allergies: No Surgeries HX Surgeries: Yes (CARDIAC ABLATION ATTEMPTS X 2; LOOP RECORDER IN PLACE) Surgeries: Cardiac, Section, Thyroidectomy Respiratory Hx Respiratory Disorders: No Cardiovascular Hx Cardiac Disorders: Yes (2 FAILED CARDIAC ABLATIONS FOR ATRIAL FIB-- LAST ONE OCT 2014 ) Cardiac Disorders: Atrial Fibrillation, Hypertension Neurological Hx Neurological Disorders: No Reproductive System Hx Reproductive Disorders: No Genitourinary Hx Genitourinary Disorders: No Gastrointestinal Hx Gastrointestinal Disorders: Yes Gastrointestinal Disorders: Gastroesophageal Reflux Musculoskeletal Hx Musculoskeletal Disorders: Yes Musculoskeletal Disorders: Arthritis Endocrine Hx Endocrine Disorders: Yes (THYROIDECTOMY- TAKES SYNTHROID) Endocrine Disorders: Hypothyroidsim HEENT HX ENT Disorders: No (BILAT CATARACTS REMOVED) HEENT Disorders: Cataract Loss of Vision: Denies Hearing Impairment: Denies Cancer Hx Cancer: No (FREEZING TO AREAS AROUND NOSE-POSS CANCEROUS) Cancer: Skin Psychosocial Hx Psychiatric Problems: No Integumentary HX Skin/Integumentary Disorder: Yes (FREEZING DONE ON SCALEY AREAS AROUND NOSE) Blood Transfusions Hx Blood Disorders: No Family Medical History Family Medial History: Cancer 03 MOTHER SON (KIDNEY) Family history: Arthritis 03 FATHER 03 MOTHER Parkinson's disease 09 BROTHER No Family History of: Family history: Cardiovascular disease Family history: Diabetes mellitus Family history: Thyroid disorder Heart disease Psychotic disorder Physical Exam Vital Signs Vital Sign - Last 12Hours 08/23/16 20:16 Temp 98.8 Pulse 131 Resp 24 B/P (MAP) 136/96 Pulse Ox 92 O2 Delivery Room Air Capillary Refill : Less Than 3 Seconds General Appearance: No Apparent Distress, WD/WN Respiratory: Normal Breath Sounds, No Accessory Muscle Use, No Respiratory Distress Cardiovascular: No JVD, No Murmur, Normal Peripheral Pulses, Irregularly Irregular, Tachycardia Gastrointestinal: Non Tender, Soft Extremity: Normal Range of Motion, Non Tender, No Calf Tenderness, No Pedal Edema Neurologic/Psychiatric: Alert, Oriented x3, No Motor/Sensory Deficits, Normal Mood/Affect, dog day care attendant II-XII Norm as Tested Skin: Normal Color, Warm/Dry Progress/Results/Core Measures Results/Orders Lab Results Laboratory Tests Test 08/23/16 20:35 Range/Units White Blood Count 6.1 4.3-11.0 10^3/uL Red Blood Count 4.97 4.35-5.85 10^6/uL Hemoglobin 13.3 11.5-16.0 G/DL Hematocrit 41 35-52 % Mean Corpuscular Volume 83 80-99 FL Mean Corpuscular Hemoglobin 27 25-34 PG Mean Corpuscular Hemoglobin Concent 32 32-36 G/DL Red Cell Distribution Width 13.5 10.0-14.5 % Platelet Count 321 130-400 10^3/uL Mean Platelet Volume 9.9 7.4-10.4 FL Neutrophils (%) (Auto) 50 42-75 % Lymphocytes (%) (Auto) 35 12-44 % Monocytes (%) (Auto) 12 0-12 % Eosinophils (%) (Auto) 2 0-10 % Basophils (%) (Auto) 1 0-10 % Neutrophils # (Auto) 3.0 1.8-7.8 X 10^3 Lymphocytes # (Auto) 2.1 1.0-4.0 X 10^3 Monocytes # (Auto) 0.7 0.0-1.0 X 10^3 Eosinophils # (Auto) 0.1 0.0-0.3 10^3/uL Basophils # (Auto) 0.1 0.0-0.1 10^3/uL Prothrombin Time 12.6 12.2-14.7 SEC INR Comment 1.0 0.8-1.4 Activated Partial Thromboplast Time 26 24-35 SEC Sodium Level 142 135-145 MMOL/L Potassium Level 4.0 3.6-5.0 MMOL/L Chloride Level 110 H 98-107 MMOL/L Carbon Dioxide Level 22 21-32 MMOL/L Anion Gap 10 5-14 MMOL/L Blood Urea Nitrogen 20 H 7-18 MG/DL Creatinine 0.79 0.60-1.30 MG/DL Estimat Glomerular Filtration Rate > 60 BUN/Creatinine Ratio 25 H 0-20 Glucose Level 115 H 70-105 MG/DL Calcium Level 9.8 8.5-10.1 MG/DL Magnesium Level 1.9 1.8-2.4 MG/DL Total Bilirubin 0.4 0.1-1.0 MG/DL Aspartate Amino Transf (AST/SGOT) 20 5-34 U/L Alanine Aminotransferase (ALT/SGPT) 29 0-55 U/L Alkaline Phosphatase 65 40-136 U/L Total Creatine Kinase 70 29-168 U/L Creatine Kinase MB 4.2 <6.6 NG/ML Troponin I < 0.30 <0.30 NG/ML B-Type Natriuretic Peptide 72.7 <100.0 PG/ML Total Protein 6.5 6.4-8.2 GM/DL Albumin 4.0 3.2-4.5 GM/DL Amylase Level 51 25-125 U/L Lipase 41 8-78 U/L TSH [place] Testing 0.82 0.35-4.94 UIU/ML My Orders Orders - CHANDAN DENNIS DO Amylase (08/23/16 20:29) Cbc With Automated Diff (08/23/16 20:29) Comprehensive Metabolic Panel (08/23/16 20:29) Creatine Kinase (08/23/16 20:29) Creatine Kinase Mb (08/23/16 20:29) Lipase (08/23/16 20:29) Partial Thromboplastin Time (08/23/16 20:29) Protime With Inr (08/23/16 20:29) Troponin I (08/23/16 20:29) Chest 1 View, Ap/Pa Only (08/23/16 20:29) O2 (08/23/16 20:29) Ekg Tracing (08/23/16 20:29) Aspirin Chewable Tablet (Baby Aspirin Ch (08/23/16 20:30) BNP (08/23/16 20:29) Monitor-Rhythm Ecg Trace Only (08/23/16 20:29) Magnesium (08/23/16 20:29) Thyroid Analyzer (08/23/16 20:29) Metoprolol Succinate (Xl) Tab (Toprol Xl (08/23/16 21:45) Medications Given in ED Current Medications Medications Dose Ordered Sig/Aleah Route Start Time Stop Time Status Last Admin Dose Admin Aspirin 324 mg ONCE ONCE PO 08/23/16 20:30 08/23/16 20:31 DC 08/23/16 21:00 324 MG Metoprolol Succinate 25 mg ONCE ONCE PO 08/23/16 21:45 08/23/16 21:46 DC 08/23/16 21:41 25 MG Vital Signs/I&O Vital Sign - Last 12Hours 08/23/16 08/23/16 08/23/16 20:16 21:00 22:04 Temp 98.8 98.8 98.8 Pulse 131 80 Resp 24 21 B/P (MAP) 136/96 Pulse Ox 92 95 O2 Delivery Room Air Room Air Blood Pressure Mean: 109 Progress Note : Progress Note PT SELF CONVERTED SHORTLY AFTER ARRIVAL UNEVENTFUL ER STAY PT AND FAMILY COMFORTABLE WITH PT GOING HOME. ECG Initial ECG Impression Time: 20:21 Initial ECG Rate: 130 Initial ECG Rhythm: A Fib/Flutter (WITH RVR) Initial ECG Impression: Atrial Fibrillation w/RVR EKG : EKG Time: 20:34 Rate: 97 Rhythm: Normal Sinus Diagnostic Imaging Comments CXR--NO ACUTE PROCESS, PER RADIOLOGIST REPORT Reviewed: Reviewed by Me Departure Communication Progress Notes 2128/2131--PAGED/ SPOKE WITH DR. CHAVEZ, ADVISES TO START PT ON TOPROL XL 25 MG AND FOLLOW UP WITH DR. LAZO THIS WEEK FOR FURTHER CARE PT AND FAMILY AGREEABLE TO THIS PLAN Impression Impression: Primary Impression: CHRONIC INTERMITTENT ATRIAL FIBRILLATION Disposition: 01 HOME, SELF-CARE Condition: Improved Departure-Patient Inst. Referrals: MARYSE LAZO MD, JACQUELINE S DO (PCP/Family) Primary Care Physician Patient Instructions: Atrial Fibrillation (DC) Add. Discharge Instructions: HOME, REST CONTINUE YOUR REGULAR MEDICATIONS PRESCRIBED FOLLOW UP WITH DR. LAZO THIS WEEK FOR FURTHER CARE RETURN TO ER IF WORSE All discharge instructions reviewed with patient and/or family. Voiced understanding. Scripts Metoprolol Succinate (Toprol Xl) 25 Mg Tab.er.24h 25 MG PO DAILY for 10 Days, #10 TAB Prov: CHANDAN DENNIS DO 08/23/16 CHANDAN DENNIS DO Aug 23, 2016 21:45
[2016-08-23 22:04] VITALS: BP 137/98
--- OUTSIDE RECORDS SUMMARY | 2016-08-26 13:28 | XMS REPORT | Continuity of Care Document ---
Author Author [facility] Organization [facility] Address Unknown Phone Unavailable Allergies Active Description Code Type Severity Reaction Onset Reported/Identified Relationship to Patient Clinical Status Yes diltiazem [id number] Drug Allergy Unknown N/A 06/28/2015 Yes thiopental [id number] Drug Allergy Unknown N/A 06/28/2015 Yes warfarin [id number] Drug Allergy Unknown N/A 06/28/2015 Medications Problems Date Dx Coded Attending Type Code Diagnosis Diagnosed By 08/01/2011 Ot 401.9 HYPERTENSION NOS 08/01/2011 Ot 427.31 ATRIAL FIBRILLATION 01/24/2013 TRU SHIELDS, ANAM Trevizo Ot 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 07/20/2013 MARYSE LAZO MD Ot 272.4 HYPERLIPIDEMIA NEC/NOS 07/20/2013 MARYSE LAZO MD Ot 401.9 HYPERTENSION NOS 07/20/2013 MARYSE LAZO MD Ot 414.01 CORONARY ATHEROSCLEROSIS OF [place] CORON 07/20/2013 MARYSE LAZO MD Ot 427.31 [...] MD Ot I25.10 ATHSCL HEART DISEASE OF [place] CORONARY 06/24/2015 MARYSE LAZO MD Ot I48.0 PAROXYSMAL ATRIAL FIBRILLATION 06/24/2015 MARYSE LAZO MD Ot I48.3 TYPICAL ATRIAL [...] MD Ot I25.10 ATHSCL HEART DISEASE OF [place] CORONARY 06/29/2015 MARYSE LAZO MD Ot I48.0 PAROXYSMAL ATRIAL FIBRILLATION 06/29/2015 MARYSE LAZO MD Ot I65.23 OCCLUSION AND STENOSIS OF [place] 06/29/2015 MARYSE LAZO MD Ot K21.9 GASTRO-ESOPHAGEAL REFLUX DISEASE WITHOUT 07/15/2015 MARYSE LAZO MD Ot E78.2 MIXED HYPERLIPIDEMIA 07/15/2015 MARYSE LAZO MD Ot I10 ESSENTIAL (PRIMARY) HYPERTENSION 07/15/2015 MARYSE LAZO MD Ot I25.10 ATHSCL HEART DISEASE OF [place] CORONARY 07/15/2015 MARYSE LAZO MD Ot I48.0 PAROXYSMAL ATRIAL FIBRILLATION 07/15/2015 MARYSE LAZO MD Ot I48.3 TYPICAL ATRIAL FLUTTER 07/15/2015 MARYSE LAZO MD Ot I65.23 OCCLUSION AND STENOSIS OF [place]ILATERAL [place] 07/29/2015 MARYSE LAZO MD Ot E78.2 MIXED HYPERLIPIDEMIA 07/29/2015 MARYSE LAZO MD Ot I10 ESSENTIAL (PRIMARY) HYPERTENSION 07/29/2015 MARYSE LAZO MD Ot I25.10 ATHSCL HEART DISEASE OF [place] CORONARY 07/29/2015 MARYSE LAZO MD Ot I48.0 [...] ELIZABETH Ot 733.00 OSTEOPOROSIS NOS 01/22/2016 TRU SHIELDS, ANAM Trevizo Ot 241.0 [...] LAZO MD Ot 414.01 CORONARY ATHEROSCLEROSIS OF [place] CORON 01/22/2016 MARYSE LAZO MD Ot 427.31 ATRIAL FIBRILLATION 01/22/2016 MARYSE LAZO MD Ot 785.1 PALPITATIONS 01/22/2016 SHELLY ISIDRO DOLINE S Ot 724.2 LUMBAGO 01/22/2016 SHELLY ISIDRO DOLINE S Ot 729.5 PAIN IN LIMB 01/22/2016 MARYSE LAZO MD Ot E78.2 MIXED HYPERLIPIDEMIA 01/22/2016 MARYSE LAZO MD Ot I10 ESSENTIAL (PRIMARY) HYPERTENSION 01/22/2016 MARYSE LAZO MD Ot I25.10 ATHSCL HEART DISEASE OF [place] CORONARY 01/22/2016 MARYSE LAZO MD Ot I48.0 PAROXYSMAL ATRIAL FIBRILLATION 01/22/2016 MARYSE LAZO MD Ot I48.3 TYPICAL ATRIAL FLUTTER 01/22/2016 MARYSE LAZO MD Ot I65.23 OCCLUSION AND STENOSIS OF [place] 01/22/2016 SHELLY ISIDRO DOLINE S Ot M85.88 OTH DISRD OF BONE DENSITY AND STRUCTURE, 01/23/2016 JOSE ISIDRO DOQUELINE S Ot M85.88 OTH DISRD OF BONE DENSITY AND STRUCTURE, 02/13/2016 JOSE ISIDRO DOQUELINE S Ot M85.88 OTH DISRD OF BONE DENSITY AND STRUCTURE, 08/05/2016 SHELLY ISIDRO DOLINE S Ot E89.0 POSTPROCEDURAL HYPOTHYROIDISM 08/05/2016 JOSE ISIDRO DOQUELINE S Ot H55.09 OTHER FORMS OF [place] 08/05/2016 REJI ISIDRO DO Ot I10 ESSENTIAL (PRIMARY) HYPERTENSION 08/05/2016 REJI ISIDRO DO Ot I48.2 CHRONIC ATRIAL FIBRILLATION 08/05/2016 REJI ISIDRO DO Ot K21.9 GASTRO-ESOPHAGEAL REFLUX DISEASE WITHOUT 08/05/2016 REJI ISIDRO DO Ot R41.0 DISORIENTATION, UNSPECIFIED 08/05/2016 REJI ISIDRO DO Ot R42 DIZZINESS AND GIDDINESS 08/05/2016 REJI ISIDRO DO Ot S40.011A CONTUSION OF RIGHT SHOULDER, INITIAL ENC 08/05/2016 REJI ISIDRO DO Ot W19.XXXA UNSPECIFIED FALL, INITIAL ENCOUNTER 08/05/2016 REJI ISIDRO DO Ot E03.9 HYPOTHYROIDISM, UNSPECIFIED Procedures Code Description Performed By Performed On [id number] MEASURE OF CARDIAC SAMPL PRESSURE, L H 06/29/2015 [id number] FLUOROSCOPY OF MULT COR ART USING L OSM 06/29/2015 [id number] FLUOROSCOPY OF LEFT HEART USING LOW OSMO 06/29/2015 [id number] FLUOROSCOPY OF ABDOMINAL AORTA USING LOW 06/29/2015 [...] urinalysis with reflex to culture NO NRG Complete blood count (CBC) with automated white blood cell (WBC) differential - 08/23/16 20:35 Blood leukocytes automated count (number/volume) 6.1 10*3/ uL 4.3-11.0 Blood erythrocytes automated count (number/volume) 4.97 10*6 /uL 4.35-5.85 Venous blood hemoglobin measurement (mass/volume) 13.3 g/dL 11.5-16.0 Blood hematocrit (volume fraction) 41 % 35-52 Automated erythrocyte mean corpuscular volume 83 [foz_us] 80-99 Automated erythrocyte mean corpuscular hemoglobin (mass per erythrocyte) 27 pg 25-34 Automated erythrocyte mean corpuscular hemoglobin concentration measurement ( mass/volume) 32 g/dL 32-36 Automated erythrocyte distribution width ratio 13.5 % 10.0-14.5 Automated blood platelet count (count/volume) 321 10*3/uL 130-400 Automated blood platelet mean volume measurement 9.9 [foz_us ] 7.4-10.4 Automated blood neutrophils/100 leukocytes 50 % 42-75 Automated blood lymphocytes/100 leukocytes 35 % 12-44 Blood monocytes/100 leukocytes 12 % 0-12 Automated blood eosinophils/100 leukocytes 2 % 0-10 Automated blood basophils/100 leukocytes 1 % 0-10 Blood neutrophils automated count (number/volume) 3.0 10*3 1.8-7.8 Blood lymphocytes automated count (number/volume) 2.1 10*3 1.0-4.0 Blood monocytes automated count (number/volume) 0.7 10*3 0.0-1.0 Automated eosinophil count 0.1 10*3/uL 0.0-0.3 Automated blood basophil count (count/volume) 0.1 10*3/uL 0.0-0.1 PT panel in platelet poor plasma by coagulation assay - 08/23/16 20:35 Prothrombin time (PT) in platelet poor plasma by coagulation assay 12.6 s 12.2-14.7 INR in platelet poor plasma or blood by coagulation assay 1.0 0.8-1.4 Activated partial thromboplastin time (aPTT) in platelet poor plasma bycoagulation assay - 08/23/16 20:35 Activated partial thromboplastin time (aPTT) in platelet poor plasma bycoagulation assay 26 s 24-35 Comprehensive metabolic panel - 08/23/16 20:35 Serum or plasma sodium measurement (moles/volume) 142 mmol/ L 135-145 Serum or plasma potassium measurement (moles/volume) 4.0 mmol/L 3.6-5.0 Serum or plasma chloride measurement (moles/volume) 110 mmol /L 98-107 Carbon dioxide 22 mmol/L 21-32 Serum or plasma anion gap determination (moles/volume) 10 mmol/L 5-14 Serum or plasma urea nitrogen measurement (mass/volume) 20 mg/dL 7-18 Serum or plasma creatinine measurement (mass/volume) 0.79 mg /dL 0.60-1.30 Serum or plasma urea nitrogen/creatinine mass ratio 25 0-20 Serum or plasma creatinine measurement with calculation of estimated glomerular filtration rate > NRG Serum or plasma glucose measurement (mass/volume) 115 mg/dL 70-105 Serum or plasma calcium measurement (mass/volume) 9.8 mg/dL 8.5-10.1 Serum or plasma total bilirubin measurement (mass/volume) 0.4 mg/dL 0.1-1.0 Serum or plasma alkaline phosphatase measurement (enzymatic activity/volume) 65 U/L 40-136 Serum or plasma aspartate aminotransferase measurement (enzymatic activity/ volume) 20 U/L 5-34 Serum or plasma alanine aminotransferase measurement (enzymatic activity/volume ) 29 U/L 0-55 Serum or plasma protein measurement (mass/volume) 6.5 g/dL 6.4-8.2 Serum or plasma albumin measurement (mass/volume) 4.0 g/dL 3.2-4.5 Magnesium - 08/23/16 20:35 Magnesium 1.9 mg/dL 1.8-2.4 Serum or plasma creatine kinase measurement (enzymatic activity/volume) - 08/23 20:35 Serum or plasma creatine kinase measurement (enzymatic activity/volume) 70 U/L 29-168 Serum or plasma creatine kinase MB measurement (enzymatic activity/volume) - 20:35 Serum or plasma creatine kinase MB measurement (enzymatic activity/volume) 4.2 ng/mL <6.6 Serum or plasma troponin i.cardiac measurement (mass/volume) - 08/23/16 20:35 Serum or plasma troponin i.cardiac measurement (mass/volume) < ng/mL <0.30 Serum or plasma lithium measurement (moles/volume) - 08/23/16 20:35 BNP level 72.7 pg/mL <100.0 Serum or plasma amylase measurement (enzymatic activity/volume) - 08/23/16 20: 35 Serum or plasma amylase measurement (enzymatic activity/volume) 51 U/L 25-125 Lipase - 08/23/16 20:35 Lipase 41 U/L 8-78 Serum or plasma thyrotropin measurement by detection limit <=0.05 miu/l (units/ volume) - 08/23/16 20:35 Serum or plasma thyrotropin measurement by detection limit <=0.05 miu/l (units/ volume) 0.82 u[iU]/mL 0.35-4.94 Encounters ACCT No. Visit Date/Time Discharge Status Pt. Type Provider Facility Loc./Unit Complaint [id number] 08/23/2016 20:16:00 2016 22:04:00 DIS Emergency CHANDAN DENNIS DO [facility] ER AFIB [id number] 08/04/2016 17:00:00 2016 08:54:00 DIS Outpatient MELISSAMELVA SIGALAREJI [facility] 4TH DIZZINESS AND AFIB [id number] 06/28/2015 15:19:00 2015 14:30:00 DIS Inpatient MARYSE LAZO MD [facility] ICU A-FIB W/ RVR [id number] 01/28/2014 13:33:00 2013 14:44:00 DIS Outpatient TRISHA NATION MD [facility] CARD SIJD [id number] 12/17/2013 11:47:00 2013 23:59:59 CLS Outpatient DWAINE SIGALAREJI [facility] RAD LOW BACK PAIN, L LEG PAIN [id number] 08/01/2013 08:46:00 2013 23:59:59 CLS Outpatient MARYSE LAZO MD [facility] CATH AFIB,PALP [id number] 07/23/2013 13:01:00 2013 23:59:59 CLS Outpatient MARYSE LAZO MD [facility] RAD ABD PAIN,POST CATH [id number] 07/20/2013 06:38:00 2013 13:15:00 DIS Outpatient MARYSE LAZO MD [facility] CATH CP,SOB,DIZZINESS [id number] 07/18/2013 09:43:00 2013 23:59:59 CLS Outpatient MARYSE LAZO MD [facility] CARD CP,PALPITATIONS,HTN,HLP [id number] 07/12/2013 08:59:00 2013 23:59:59 CLS Outpatient MARYSE LAZO MD [facility] CARD CP PALIPATIATION HYPERTENSION HYPERLIPIDEMA [id number] 06/18/2013 11:24:00 2013 23:59:59 CLS Outpatient MARYSE LAZO MD [facility] CARD CP, HTN [id number] 01/23/2013 07:15:00 2012 11:30:00 DIS Outpatient ANAM OTT MD [facility] SDC THYROID NODULES [id number] 01/19/2013 08:01:00 2012 23:59:59 CLS Outpatient ANAM OTT MD [facility] PREOP THYROID NODULES [id number] 01/10/2013 08:49:00 2012 23:59:59 CLS Outpatient ANAM OTT MD [facility] RAD LEFT THYROID NODULE [id number] 01/05/2013 08:53:00 2012 23:59:59 CLS Outpatient BEAU ELIZABETH [facility] RAD OSTEOPORSIS [id number] 01/01/2013 12:22:00 2012 23:59:59 CLS Outpatient REJI ISIDRO DO [facility] RAD THYROID NODULES [id number] 01/22/2016 09:14:00 ACT Outpatient REJI ISIDRO DO [facility] RAD OSTEOPENIA [id number] 06/23/2015 08:16:00 ACT Outpatient MARYSE LAZO MD [facility] CARD CAD,ATRIAL FLUTTER, HTN,HLP PAF [id number] 12/03/2011 12:47:00 Document Registration [id number] 08/02/2011 09:00:00 Document Registration [id number] 05/10/2011 07:52:00 Document Registration [id number] 05/03/2011 08:50:00 Document Registration [id number] 08/05/2010 08:55:00 Document Registration
== END 2016-08-23 22:04 | disposition home or self-care (01) ==
LOC: EDUNIT# 20:14 → ER 20:16
DX: I48.91 Unspecified atrial fibrillation (principal)
CPT/HCPCS: 36415; 71010; 80053; 82150; 82550; 82553; 83690; 83735; 83880; 84443; 84484; 85025; 85610; 85730; 93005; 93041

== ENCOUNTER → 2019-01-25 | Day surgery (SDC) | payer MEDICARE ==
[~2019-01-25] VITALS: Ht 157 cm; Wt 71.0 kg
[~2019-01-25] MED LIST changes: -AMIO200T2 PO; +AMIO200T4 PO; -FENO145T20 PO; +FENO145T37 PO; +LIDOCAINE 1% INJ 20 ML 20 ML VIAL INJ ONE; +LIDOCAINE 1% INJ 20 ML 20 ML VIAL ONE; +METO-351 PO; +Multaq
[2019-01-25 14:55] VITALS: BP 128/75
--- NOTE | 2019-01-25 15:12 | Implantation of Loop Monitor ---
Implant of Loop Monitior IMPLANTATION OF LOOP MONITOR REPORT DATE OF PROCEDURE: 01/25/19 PREOP DIAGNOSIS: Paroxysmal atrial fibrillation POSTOP DIAGNOSIS: Paroxysmal atrial fibrillation PROCEDURE DETAILS: The patient is a 84 female with history of paroxysmal atrial fibrillation requiring long-term surveillance. Therefore implantable loop recorder was discussed and agreed with the patient. Informed consent was taken. All risks and complications were discussed at length. The patient was draped and prepped in the usual sterile fashion. Local anesthesia was lidocaine, which was given in the substernal area close to the 4th intercostal space. Loop monitor [employer] with serial number [id number] was implanted according to the protocol. Steri- Strips were placed at the end of the procedure. There were no complications and the patient tolerated the procedure well. The device was interrogated with a voltage of. ANESTHESIA: Local anesthesia with lidocaine. COMPLICATIONS: None CONTRAST/FLUOROSCOPY: None CONCLUSION: Successful implantation of loop recorder would no complications FINAL DIAGNOSIS: Paroxysmal atrial fibrillation Palpitation Hypertension Coronary artery disease MARYSE LAZO MD Jan 25, 2019 3:12 pm POS
== END | disposition home or self-care (01) ==
LOC: CATH 14:45
PROVIDERS: ATTEND Internal Medicine Cardiovascular Disease
DX: I48.0 Paroxysmal atrial fibrillation (principal); R00.2 Palpitations; I10 Essential (primary) hypertension; I25.10 Atherosclerotic heart disease of native coronary artery without angina pectoris
CPT/HCPCS: 33285

== ENCOUNTER → 2019-05-17 | Outpatient (CLI) | payer MEDICARE ==
[~2019-05-17] MED LIST changes: +FENO145T26 PO; -FENO145T37 PO; -LIDOCAINE 1% INJ 20 ML 20 ML VIAL INJ ONE; -LIDOCAINE 1% INJ 20 ML 20 ML VIAL ONE; -MECL-106 PO; +MECL-149 PO
== END ==
LOC: CARD 14:19
PROVIDERS: ATTEND Physician Assistant
DX: I48.91 Unspecified atrial fibrillation (principal); I25.10 Atherosclerotic heart disease of native coronary artery without angina pectoris; I65.29 Occlusion and stenosis of unspecified carotid artery; I11.9 Hypertensive heart disease without heart failure
CPT/HCPCS: 93306

== ENCOUNTER → 2021-01-07 | Outpatient (CLI) | payer MEDICARE ==
[~2021-01-07] MED LIST changes: -AMIO200T4 PO; +AMIO200T6 PO
== END ==
LOC: CARD 08:13
PROVIDERS: ATTEND Physician Assistant
DX: I10 Essential (primary) hypertension (principal); I25.10 Atherosclerotic heart disease of native coronary artery without angina pectoris
CPT/HCPCS: 93306

== ENCOUNTER → 2021-04-03 | Outpatient (CLI) | payer MEDICARE ==
[~2021-04-03] MED LIST changes: -AMIO200T6 PO; +AMIO200T65 PO
--- NOTE | 2021-04-03 14:13 | Diagnostic Imaging Report ---
INDICATION: Palpable lump left breast. Correlation is made with prior mammogram from 07/11/2009. 2-D and 3-D bilateral diagnostic mammography was performed with CAD. Scattered fibroglandular densities are identified bilaterally. There are numerable calcifications throughout both breasts. Cardiac loop recorder overlies the left breast. There is a lobulated mass in the lower and slightly outer left breast likely accounting for the mammographic abnormality. No other masses are seen. Axillae are unremarkable. IMPRESSION: Lobulated density in the lower outer left breast suspicious for a mass and likely accounting for the palpable abnormality. Further evaluation with ultrasound is recommended and will be performed today. BI-RADS Category 0 ACR BI-RADS Category 0: Incomplete. (Needs additional imaging evaluation). Result letter will be mailed to the patient. Note: At least 10% of breast cancer is not imaged by mammography. Dictated by: Dictated on workstation # [id number]
--- NOTE | 2021-04-03 15:29 | Diagnostic Imaging Report ---
INDICATION: Palpable lump left breast. COMPARISON: Correlation is made with diagnostic mammogram from earlier the same day. EXAMINATION: Sonographic interrogation of the area of palpable abnormality in the left breast was performed. FINDINGS: There is a lobulated solid mass at the 1-2 o'clock location of the left breast, 2-3 cm from the nipple. This measures 2.8 x 2.8 x 1.7 cm. The margins are somewhat ill-defined. There is some internal vascularity. This is highly concerning for a breast neoplasm. Evaluation of the left axilla demonstrates several enlarged axillary nodes. The largest measures 2.3 x 1.8 x 1.5 cm. IMPRESSION: Lobulated solid mass at the 1-2 o'clock location of the left breast, accounting for the palpable and mammographic amount a. This is concerning for breast neoplasm. Is also a large there are enlarged lymph nodes in left axilla. Tissue sampling is recommended. Tissue sampling of the nipple breast mass and enlarged left axillary lymph node would be recommended. These would be amenable to ultrasound guidance. ACR BI-RADS Category 4: Suspicious abnormality. Result letter will be mailed to the patient. Note: At least 10% of breast cancer is not imaged by mammography. Dictated by: Dictated on workstation # [id number]
== END ==
LOC: RAD 13:15
PROVIDERS: ATTEND Family Medicine
DX: N63.21 Unspecified lump in the left breast, upper outer quadrant (principal); R59.0 Localized enlarged lymph nodes
CPT/HCPCS: 76642; 77066; G0279; 77062

== ENCOUNTER → 2021-04-08 | Outpatient (CLI) | payer MEDICARE ==
[~2021-04-08] VITALS: Ht 155 cm; Wt 70.0 kg
[~2021-04-08] MED LIST changes: +LIDOCAINE 1% INJ 20 ML VIAL INJ ONE
--- NOTE | 2021-04-08 14:38 | Diagnostic Imaging Report ---
INDICATION: Left breast mass and enlarged left axillary lymph node. Study is performed after patient underwent ultrasound-guided biopsy of the left breast mass and left axillary lymph node. 2-D CC and ML mammography was performed. There is a biopsy clip noted along the posterior and medial margin of the spiculated left breast mass. The axillary lymph node was not included on these images. IMPRESSION: Marker clip located in left breast mass, as described. Dictated by: Dictated on workstation # [id number]
--- NOTE | 2021-04-08 14:42 | Diagnostic Imaging Report ---
INDICATION: Left breast mass. Patient presents for ultrasound guided biopsy. Patient brought to the sonographic suite placed on table in the supine position. Left breast was prepped and draped in usual sterile fashion. Small amount 1% lidocaine was utilized for local anesthesia. A total of 4 core biopsies were obtained of the large irregular hypoechoic solid mass at the 1-2 o'clock location left breast, 2-3 cm from the nipple utilizing a 14-gauge achieve needle. A marker clip was deployed. Hemostasis was obtained using manual compression. Patient tolerated the procedure well. IMPRESSION: Successful ultrasound guided core biopsy of the solid mass at the 1-2 o'clock location left breast, 2 to 3 cm from the nipple. Pathology results are currently pending. Dictated by: Dictated on workstation # [id number]
--- NOTE | 2021-04-08 14:51 | Diagnostic Imaging Report ---
INDICATION: Enlarged left axillary lymph node. Patient presents for ultrasound guided biopsy. Patient brought to the ultrasound room placed on table in the supine position. Ultrasound imaging of the left axilla was performed to evaluate appropriate entry site. Left axilla was then prepped and draped in usual sterile fashion. Small amount of 1% lidocaine was utilized for local anesthesia. A total of 3 passes were made into the enlarged left axillary lymph node utilizing a 14-gauge Achieve needle. Core biopsies were obtained. Marker clip was then deployed. Hemostasis was obtained using manual compression. Patient tolerated procedure well and left for post procedure mammogram in satisfactory condition. IMPRESSION: Successful ultrasound guided core biopsy of enlarged left axillary lymph node. Pathology results are currently pending. Dictated by: Dictated on workstation # [id number]
== END ==
LOC: RAD 12:30
PROVIDERS: ATTEND Family Medicine
DX: N63.21 Unspecified lump in the left breast, upper outer quadrant (principal); R59.0 Localized enlarged lymph nodes
CPT/HCPCS: 19083; 76942; 77065; 88305; 88341; 88342; 88360; G0279

== ENCOUNTER → 2021-04-27 | Outpatient (CLI) | payer MEDICARE ==
[~2021-04-27] MED LIST changes: -LIDOCAINE 1% INJ 20 ML VIAL INJ ONE
--- NOTE | 2021-04-27 16:35 | Diagnostic Imaging Report ---
INDICATION: Right middle finger infection. TECHNIQUE: AP, oblique, and lateral views of the right hand were obtained. FINDINGS: No fracture or acute bony abnormality is seen. There is no erosive bony lesion. There are severe diffuse degenerative changes throughout the interphalangeal joints and degenerative changes throughout the MTP joints, especially of the 1st, 2nd, and 3rd digits. There is extensive degenerative change of the radiocarpal joint, 1st carpometacarpal joint, and triscaphe joint. IMPRESSION: Extensive degenerative findings with no acute fracture or overt erosive bony lesion. Dictated by: Dictated on workstation # [id number]
== END ==
LOC: RAD 12:02
PROVIDERS: ATTEND Surgery
DX: M19.041 Primary osteoarthritis, right hand (principal)
CPT/HCPCS: 73130

== ENCOUNTER → 2021-05-14 | Outpatient (CLI) | payer MEDICARE | LOC: LABNPT 09:07 | PROVIDERS: ATTEND Internal Medicine Gastroenterology | DX: Z20.822 Contact with and (suspected) exposure to COVID-19 (principal) | CPT/HCPCS: 87635 ==

== ENCOUNTER → 2021-07-22 | Outpatient (CLI) | payer MEDICARE ==
--- NOTE | 2021-07-27 09:20 | Diagnostic Imaging Report ---
INDICATION: Left breast carcinoma. Correlation is made with prior ultrasound from 04/03/2021. Sonographic interrogation upper outer left breast was performed. Previously noted hypoechoic solid mass 1-2 o'clock location left breast is again noted, 2 to 3 cm from the nipple. This now measures 3.2 x 2.1 x 3.2 cm compared with 2.8 x 2.8 x 1.7 cm on prior exam. Left axillary lymphadenopathy is again noted. The largest lymph node left axilla measures 2.2 x 0.9 x 1.6 cm compared with 2.3 x 1.8 x 1.5 cm on prior exam. No new abnormality is detected. IMPRESSION: BI-RADS Category 6 Slight increase in size of known breast malignancy 1-2 o'clock location left breast when compared with exam from 04/03/2021. Enlarged left axillary lymph nodes are measuring slightly smaller on today's exam. No new abnormality is detected. ACR BI-RADS Category 6: Known biopsy proven malignancy. Dictated by: Dictated on workstation # [id number]
== END ==
LOC: RAD 08:48
PROVIDERS: ATTEND Internal Medicine Hematology & Oncology
DX: C50.412 Malignant neoplasm of upper-outer quadrant of left female breast (principal); R59.0 Localized enlarged lymph nodes
CPT/HCPCS: 76641

== ENCOUNTER → 2021-10-12 | Outpatient (CLI) | payer MEDICARE ==
--- NOTE | 2021-10-12 11:23 | Diagnostic Imaging Report ---
INDICATION: Left breast carcinoma. COMPARISON: Prior ultrasound from 07/22/2021. FINDINGS: Sonographic interrogation of the mass at the 2 o'clock location of the left breast was performed. The Irregular hypoechoic mass measures 2.3 x 1.9 x 2.9 cm compared with 3.2 x 2.1 x 3.2 cm. This again does show internal blood flow. There continue to be enlarged lymph nodes in the left axilla with the largest 1.8 x 1.1 cm. IMPRESSION: Known left breast malignancy does show some slight decrease in size when compared with the examination from 07/22/2021. ACR BI-RADS Category 6: Known biopsy proven malignancy. Dictated by: Dictated on workstation # [id number]
== END ==
LOC: RAD 09:15
PROVIDERS: ATTEND Internal Medicine Hematology & Oncology
DX: C50.412 Malignant neoplasm of upper-outer quadrant of left female breast (principal); C77.3 Secondary and unspecified malignant neoplasm of axilla and upper limb lymph nodes
CPT/HCPCS: 76641

== ENCOUNTER → 2022-01-11 | Outpatient (CLI) | payer MEDICARE ==
--- NOTE | 2022-01-11 12:21 | Diagnostic Imaging Report ---
EXAMINATION: Ultrasound left breast. INDICATION: Left breast mass. FINDINGS: By history, the patient has a known diagnosis of malignancy. The previous left breast ultrasound exam performed on 10/12/2021 noted an irregular hypoechoic mass measuring 2.3 x 1.9 x 2.9 cm. That mass has decreased in size and now measures 2.6 x 1.9 x 1.7 cm. The previous study also noted several prominent lymph nodes in the left axilla. The largest of these measured 1.8 x 1.1 cm. The lymph nodes have also decreased in size. The largest lymph node now measures only 1.3 x 1.1 cm. IMPRESSION: Both the mass within the left breast and the lymph nodes in the left axilla have decreased in size since the prior exam. No new abnormality has developed otherwise. ACR BI-RADS Category 6: Known biopsy proven malignancy. Result letter will be mailed to the patient. Note: At least 10% of breast cancer is not imaged by mammography. Dictated by: Dictated on workstation # [id number]
== END ==
LOC: RAD 08:54
PROVIDERS: ATTEND Internal Medicine Hematology & Oncology
DX: C50.412 Malignant neoplasm of upper-outer quadrant of left female breast (principal); C77.3 Secondary and unspecified malignant neoplasm of axilla and upper limb lymph nodes; Z79.811 Long term (current) use of aromatase inhibitors
CPT/HCPCS: 76641

== ENCOUNTER → 2022-05-17 | Outpatient (CLI) | payer MEDICARE ==
--- NOTE | 2022-05-17 09:36 | Diagnostic Imaging Report ---
INDICATION: Left breast carcinoma, followup. COMPARISON: Correlation is made with prior ultrasound from 01/11/2022. FINDINGS: Sonographic interrogation of the known left breast malignancy at the 2 o'clock location 3 cm from the nipple was performed. The mass now measures 1.4 x 1.5 x 2.4 cm compared with 1.7 x 1.9 x 2.6 cm on the prior exam. No new mass is detected. A left axillary lymph node is noted measuring 0.9 x 0.5 x 0.7 cm. IMPRESSION: The known left breast malignancy measures slightly smaller in size when compared with the examination from 01/11/2022. ACR BI-RADS Category 6: Known biopsy proven malignancy. Result letter will be mailed to the patient. Note: At least 10% of breast cancer is not imaged by mammography. Dictated by: Dictated on workstation # [id number]
== END ==
LOC: RAD 08:42
PROVIDERS: ATTEND Internal Medicine Hematology & Oncology
DX: C50.412 Malignant neoplasm of upper-outer quadrant of left female breast (principal); C77.3 Secondary and unspecified malignant neoplasm of axilla and upper limb lymph nodes; Z79.811 Long term (current) use of aromatase inhibitors

== ENCOUNTER → 2022-09-15 | Outpatient (CLI) | payer MEDICARE ==
--- NOTE | 2022-09-15 09:27 | Diagnostic Imaging Report ---
INDICATION: Left breast carcinoma, followup. COMPARISON: Correlation is made with the prior left breast ultrasound from 05/17/2022. FINDINGS: Sonographic interrogation of the 2 o'clock location of the left breast 3 cm from the nipple was performed at site of known breast malignancy. This has reduced in size, now measuring 1.1 x 1.4 x 1.2 cm compared with 1.4 x 1.5 x 2.4 cm on the prior exam. There appear to be some punctate calcifications present. A fatty left axillary lymph node is noted which is normal in size at 9 x 9 x 8 mm. IMPRESSION: Reduction in size of the known breast malignancy at the 2 o'clock location of the left breast when compared to the examination from 05/17/2022. ACR BI-RADS Category 6: Known biopsy proven malignancy. Dictated by: Dictated on workstation # [id number]
== END ==
LOC: RAD 09:00
PROVIDERS: ATTEND Nurse Practitioner Adult Health
DX: C50.412 Malignant neoplasm of upper-outer quadrant of left female breast (principal); C77.3 Secondary and unspecified malignant neoplasm of axilla and upper limb lymph nodes; Z79.811 Long term (current) use of aromatase inhibitors; Z78.0 Asymptomatic menopausal state

== ENCOUNTER → 2022-09-21 | Outpatient (CLI) | payer MEDICARE ==
--- NOTE | 2022-09-21 14:02 | Diagnostic Imaging Report ---
INDICATION: Postmenopausal screening COMPARISON: 01/22/2016 FINDINGS: AP Spine L1-L4: [BMD (g/cm2): 1.212] [T-Score: 0.1] [Z-Score: 2.0] [BMD Previous: 1.259] [BMD % Change: -3.7*] LT Hip Neck: [BMD (g/cm2): 0.900] [T-Score: -1.0] [Z-Score: 1.5] LT Hip Total: [BMD (g/cm2):0.882] [T-Score:-1.0] [Z-Score: 1.4] [BMD Previous: 1.005] [BMD % Change: -12.2*] RT Hip Neck: [BMD (g/cm2):0.838] [T-Score:-1.4] [Z-Score:1.0] RT Hip Total: [BMD (g/cm2):0.878] [T-score:-1.0] [Z-Score:1.4] [BMD Previous:1.004] [BMD % Change:-12.5*] *Indicates significant change from prior examination based on 95% confidence level. World Health Organization criteria for BMD interpretation classify patients as Normal (T-score at or above -1.0), Osteopenic (T-score between -1.0 and -2.5) or Osteoporotic (T-score at or below -2.5). LIMITATIONS AND MODIFICATION: None. FRACTURE RISK (FRAX SCORE): The ten year probability of (%): Major Osteoporotic Fracture: [11.4] Hip Fracture: [3.3] IMPRESSION: 1. Osteopenia (Low bone mass). 2. Bone mineral density has decreased by a statistically significant amount, as detailed above. 3. See below National Osteoporosis Foundation guidelines on when to potentially initiate pharmacologic therapy. Based on the National Osteoporosis Foundation Guidelines, pharmacologic treatment should be initiated in any of the following, unless clinical conditions suggest otherwise: * Any patient with prior fragility fracture of the hip or vertebrae. A spine fracture indicates 5X risk for subsequent spine fracture and 2X risk for subsequent hip fracture. * Osteoporosis (T-score <-2.5). * Postmenopausal women and men age 50 and older with low bone mass/osteopenia (T-score between -1.0 and -2.5) by DXA and 10-year major osteoporotic fracture greater than 20% or a 10-year probability of hip fracture greater than 3%. These fracture risks are supplied above in the FRAX score, if applicable. * Clinician judgement and/or patient preferences may indicate treatment for people with 10-year fracture probabilities above or below these levels. Dictated by: Dictated on workstation # [id number]
== END ==
LOC: RAD 11:53
PROVIDERS: ATTEND Nurse Practitioner Adult Health
DX: M85.80 Other specified disorders of bone density and structure, unspecified site (principal); C50.912 Malignant neoplasm of unspecified site of left female breast; Z78.0 Asymptomatic menopausal state; Z79.811 Long term (current) use of aromatase inhibitors
CPT/HCPCS: 77080

== ENCOUNTER → 2023-02-02 | Outpatient (CLI) | payer MEDICARE ==
[~2023-02-02] MED LIST changes: -MECL-149 PO; +MECL-291 PO
--- NOTE | 2023-02-02 09:59 | Diagnostic Imaging Report ---
INDICATION: Left breast carcinoma. This study is performed for followup. COMPARISON: Prior left breast ultrasound from 09/15/2022. TECHNIQUE/FINDINGS: Sonographic interrogation of the 2 o'clock location of the left breast 3 cm from the nipple was performed. The known left breast malignancy at this location does appear to be somewhat increased in size at 1.6 x 1.4 x 1.8 cm compared with 1.1 x 1.4 x 1.2 cm on the prior exam. Punctate echogenic foci within the mass are noted, suggestive of microcalcifications. No other masses are identified. IMPRESSION: There has been a mild increase in size of the known left breast malignancy at the 2 o'clock location 3 cm from the nipple when compared with the prior exam from 09/15/2022. ACR BI-RADS Category 6: Known biopsy proven malignancy. Dictated by: Dictated on workstation # [id number]
== END ==
LOC: RAD 08:21
PROVIDERS: ATTEND Internal Medicine Hematology & Oncology
DX: C50.412 Malignant neoplasm of upper-outer quadrant of left female breast (principal)